=== PATIENT | male | born 1965 | race African-American/Black ===

== ENCOUNTER 2022-10-27 15:54 | Emergency (ER) | payer MEDICAID ==
[~2022-10-27] VITALS: Ht 177.8 cm; Wt 91.0 kg
[2022-10-27 16:03] VITALS: BP 135/69
[2022-10-27] MEDS ORDERED: TETRACAINE 0.5% OPHTH DROPS 4ML LEFTEYE ONE (16:30)
[2022-10-27] MEDS ORDERED: FLUORESCEIN SODIUM 1MG/STRIP LEFTEYE ONE (16:30)
[2022-10-27 18:47] LABS: BASOPHILS % 0.4 % (0.0-2.0); EOSINOPHILS % 2.4 % (0.0-5.0); HEMATOCRIT. 38.5 % (42.0-52.0); HEMOGLOBIN. 12.6 g/dL (14.0-18.0); LYMPHOCYTES % 9.6 % (20.0-50.0); MEAN CORPUSCULAR HEMOGLOBIN 26.8 pg (28.0-32.0); MEAN CORPUSCULAR VOLUME 81.8 fL (80.0-94.0); MEAN PLATELET VOLUME 7.5 fl (7.4-10.4); NEUTROPHILS % 80.6 % (40.0-76.0); PLATELET 264 x1000/uL (130-400); RED CELL DISTRIBUTION WIDTH 14.6 % (11.6-14.6)
[2022-10-27 19:01] LABS: CHLORIDE 109 mEq/L (98-107)
[2022-10-27 19:16] LABS: ETHANOL BLOOD < 10 mg/dL
== END 2022-10-27 20:30 | disposition left against medical advice (07) ==
LOC: ER 15:54
DX: S29.9XXA Unspecified injury of thorax, initial encounter (principal); S05.92XA Unspecified injury of left eye and orbit, initial encounter; R07.89 Other chest pain; M79.89 Other specified soft tissue disorders; I50.9 Heart failure, unspecified; E11.9 Type 2 diabetes mellitus without complications
CPT/HCPCS: 36415; 71045; 80053; 80307; 80320; 80329; 83880; 84484; 85025; 93005; 99285; G0480

== ENCOUNTER 2022-11-08 09:21 | Emergency (ER) | payer MEDICAID ==
[~2022-11-08] VITALS: Ht 172.7 cm; Wt 120.0 kg
[2022-11-08 09:24] VITALS: BP 147/80
[2022-11-08] MEDS ORDERED: LIDOCAINE HCL 1% 20ML VIAL (Pyxis) INJ INFIL ONE (09:45)
[2022-11-08] MEDS ORDERED: ACETAMINOPHEN 325MG TABLET PO ONE (09:45)
[2022-11-08] MEDS ORDERED: HYDR25TA MT (11:11)
[2022-11-08] MEDS ORDERED: AMOX1TAB16 MT (11:11)
[2022-11-08] MEDS ORDERED: BACITRACIN 15GM TUBE TOP ONE (11:15)
[2022-11-08] MEDS ORDERED: BACITRACIN ZINC OINT UDPKT TOP SCH (11:30)
== END 2022-11-08 11:44 | disposition home or self-care (01) ==
LOC: ER 09:21
DX: S01.81XA Laceration without foreign body of other part of head, initial encounter (principal); S02.40DA Maxillary fracture, left side, initial encounter for closed fracture; S02.40CA Maxillary fracture, right side, initial encounter for closed fracture; S09.8XXA Other specified injuries of head, initial encounter; X99.1XXA Assault by knife, initial encounter; W18.39XA Other fall on same level, initial encounter; Y93.89 Activity, other specified; Y92.018 Other place in single-family (private) house as the place of occurrence of the external cause
CPT/HCPCS: 12013; 70450; 70486; 99284; Z7610

== ENCOUNTER 2022-11-19 10:13 | Emergency (ER) | payer MEDICAID ==
[~2022-11-19] VITALS: Ht 172.7 cm; Wt 107.0 kg
[~2022-11-19 10:13] MED LIST: AMOX1TAB16 MT; HYDR25TA MT
[2022-11-19 10:20] VITALS: BP 163/88
[2022-11-19] MEDS ORDERED: TETRACAINE 0.5% OPHTH DROPS 4ML RIGHTEYE ONE (13:30)
[2022-11-19] MEDS ORDERED: FLUORESCEIN SODIUM 1MG/STRIP RIGHTEYE ONE (13:30)
[2022-11-19] MEDS ORDERED: OFLO5DRO3 RIGHTEYE (13:52)
== END 2022-11-19 15:17 | disposition home or self-care (01) ==
LOC: ER 10:13
DX: S05.02XA Injury of conjunctiva and corneal abrasion without foreign body, left eye, initial encounter (principal); X58.XXXA Exposure to other specified factors, initial encounter; Y93.89 Activity, other specified; Y92.89 Other specified places as the place of occurrence of the external cause; Y99.8 Other external cause status; I50.9 Heart failure, unspecified; E11.9 Type 2 diabetes mellitus without complications
CPT/HCPCS: 99283